=== PATIENT | male | born 1955 | race Caucasian/White ===

== ENCOUNTER 2018-12-10 21:26 | Emergency (ER) | payer MEDICARE, BC ==
[2018-12-10] MEDS ORDERED: Acetaminophen/HYDROcodone 325-5 MG Tab PO ONE (23:43)
--- NOTE | 2018-12-10 23:47 | EDM.PDOC ---
ED HPI GENERAL MEDICAL PROBLEM - General Chief Complaint: Lower Extremity Injury/Pain Stated Complaint: [facility] Time Seen by Provider: 12/10/18 23:17 Source of Information: Reports: Patient History Limitations: Reports: No Limitations - History of Present Illness INITIAL COMMENTS - FREE TEXT/NARRATIVE: Mr. Vega is a very pleasant 62-year-old man with a past medical history significant for type 1 diabetes and bilateral [id number] amputations, who states that he developed pain to his distal right femur, that radiated into his right BKA stump yesterday, 12/09/2018, but became worse today. He has an ulcer to the anterior aspect of his distal stump that has been there for the past 3 weeks that is being treated with dressing changes, but no antibiotics. No recent injury to his right lower extremity. No recent fever. The patient states that he had similar symptoms this past July. He states that a workup included a bone scan, x-rays, and an ultrasound, all which were negative. He states that he was prescribed oral antibiotics and pain medications , and that the pain resolved. The patient states that he checks his blood glucose at least 4 times a day, with his usual blood glucose around 200. It was 113 this morning, but was 345 by EMS. The patient has an insulin pump. The patient reports that he developed end-stage renal disease in 2000, and was on hemodialysis for a year before receiving a kidney transplant in 2001. He is on CellCept and cyclosporine (Gengraf). The patient is visiting this area from [place]. He intends to head back home this morning, 12/13/2018. Right Leg Pain Score (Numeric/FACES): 10 - Related Data Allergies Allergy/AdvReac Type Severity Reaction Status Date / Time Penicillins Allergy Cannot Verified 12/10/18 21:34 Remember Home Meds: Home Meds Cephalexin [Keflex] 1 cap PO Q6H #20 capsule 12/11/18 [Rx] Sulfamethoxazole/Trimethoprim [Bactrim Ds Tablet] 1 tab PO Q12H #10 tablet 12/11 [Rx] Past Medical History Cardiovascular History: Reports: Hypertension Genitourinary History: Reports: Chronic Renal Insuffiency (s/p kidney transplant 2001. On HD 2000 -> 2001.) Endocrine/Metabolic History: Reports: Diabetes, Type I, Hypothyroidism Immunologic History: Reports: Immunosuppression, Solid Organ Transplant (kidney , 2001) - Past Surgical History Male Surgical History: Reports: Other (See Below) (Kidney transplant 2001) Musculoskeletal Surgical History: Reports: Amputation (Left BKA 2002. Right BKA 2014.) Social & Family History - Family History Family Medical History: Noncontributory - Tobacco Use Smoking Status *Q: Never Smoker - Caffeine Use Caffeine Use: Reports: Soda, Tea - Alcohol Use Alcohol Use History: Yes Alcohol Use Frequency: Rarely - Recreational Drug Use Recreational Drug Use: No - Living Situation & Occupation Living situation: Reports: , with Spouse Occupation: Disabled Review of Systems - Review of Systems Review Of Systems: ROS reveals no pertinent complaints other than HPI. ED EXAM, GENERAL - Physical Exam Exam: See Below Exam Limited By: No Limitations General Appearance: Alert, WD/WN, No Apparent Distress Eye Exam: Bilateral Eye: EOMI, Normal Inspection Ears: Normal External Exam, Hearing Grossly Normal Nose: Normal Inspection Throat/Mouth: Normal Inspection, Normal Lips, Normal Voice, No Airway Compromise Head: Atraumatic, Normocephalic Neck: Normal Inspection, Full Range of Motion Respiratory/Chest: No Respiratory Distress, Lungs Clear, Normal Breath Sounds, No Accessory Muscle Use Cardiovascular: Normal Peripheral Pulses, Regular Rate, Rhythm, No Gallop, No JVD, No Murmur, No Rub Peripheral Pulses: 4+: Radial (L), Radial (R) GI/Abdominal: Normal Bowel Sounds, Soft, Non-Tender, No Organomegaly, No Distention, No Abnormal Bruit, No Mass (Male) Exam: Deferred Rectal (Males) Exam: Deferred Back Exam: Normal Inspection, Full Range of Motion, NT Extremities: Normal Capillary Refill, Other (Bilateral BKA's. There is an approximately 2 cm diameter ulcer in the anterior distal right stump. No other visible abnormalities to the right stump, such as swelling, erythema, ecchymosis , or abrasion, however, the stump is very warm to palpation, much warmer than the right thigh, or the patient's left stump or left thigh. Mild tenderness to palpation of the right stump. Neurovascular status of both lower extremities appears to be intact.) Neurological: Alert, Oriented, Normal Cognition, No Motor/Sensory Deficits Psychiatric: Normal Affect Skin Exam: Warm, Dry, Intact, Normal Color, No Rash Course - Vital Signs Last Recorded V/S: Last Vital Signs Temp 38.1 C 12/10/18 21:30 Pulse 94 12/10/18 21:30 Resp 14 12/10/18 21:30 BP 172/79 H 12/10/18 21:30 Pulse Ox 95 12/10/18 21:30 - Orders/Labs/Meds Orders: Active Orders 24 hr Category Date Time Status CULTURE BLOOD [BC] Stat Lab 12/10/18 23:46 Received CULTURE BLOOD [BC] Stat Lab 12/10/18 23:55 Received Blood Culture x2 Reflex Set [OM.PC] Stat Oth 12/10/18 23:46 Ordered Labs: Laboratory Tests 12/11/18 12/11/18 12/11/18 Range/Units 00:08 00:08 01:17 WBC 20.19 H (4.23-9.07) K/mm3 RBC 4.08 L (4.63-6.08) M/mm3 Hgb 11.7 L (13.7-17.5) gm/L Hct 36.5 L (40.1-51.0) % MCV 89.5 (79.0-92.2) fl MCH 28.7 (25.7-32.2) pg MCHC 32.1 L (32.2-35.5) g/dl RDW Std Deviation 45.2 H (35.1-43.9) fL Plt Count 450 H (163-337) K/mm3 MPV 10.0 (9.4-12.3) fl Neutrophils % (Manual) 85 H (40-60) % Band Neutrophils % 4 (0-10) % Lymphocytes % (Manual) 8 L (20-40) % Atypical Lymphs % 0 % Monocytes % (Manual) 3 (2-10) % Eosinophils % (Manual) 0 L (0.8-7.0) % Basophils % (Manual) 0 L (0.2-1.2) Platelet Estimate Increased RBC Morph Comment Normal Sodium 135 L (136-145) mEq/L Potassium 4.9 (3.5-5.1) mEq/L Chloride 104 (98-107) mEq/L Carbon Dioxide 22 (21-32) mEq/L Anion Gap 13.9 (5-15) BUN 37 H (7-18) mg/dL Creatinine 1.6 H (0.7-1.3) mg/dL Est Cr Clr Drug Dosing 44.10 mL/min Estimated GFR (MDRD) 44 (>60) mL/min BUN/Creatinine Ratio 23.1 H (14-18) Glucose 370 H (74-106) mg/dL Calcium 9.0 (8.5-10.1) mg/dL Total Bilirubin 0.4 (0.2-1.0) mg/dL AST 10 L (15-37) U/L ALT 11 L (16-63) U/L Alkaline Phosphatase 129 H (46-116) U/L Total Protein 7.3 (6.4-8.2) g/dl Albumin 2.3 L (3.4-5.0) g/dl Globulin 5.0 gm/dL Albumin/Globulin Ratio 0.5 L (1-2) MRSA (PCR) Positive H Meds: Medications Discontinued Medications Generic Name Dose Route Start Last Admin Trade Name Freq PRN Reason Stop Dose Admin Hydrocodone Bitart/Acetaminophen 2 tab 12/10/18 23:43 12/10/18 23:54 Counce 325-5 Mg PO 12/10/18 23:44 2 tab ONETIME ONE Administration Vancomycin HCl 1 gm/ Sodium 250 mls @ 250 mls/hr 12/11/18 02:45 12/11/18 03: 28 Chloride IV 250 mls/hr Q12H BISHNU Administration Ceftriaxone Sodium 1 gm/ 100 mls @ 200 mls/hr 12/11/18 02:45 12/11/18 02:57 Sodium Chloride IV 12/11/18 03:14 200 mls/hr ONETIME STA Administration - Re-Assessments/Exams Free Text/Narrative Re-Assessment/Exam: 12/10/18 23:46 As per the physical exam, the patient's right stump is warm to palpation, although there is no associated erythema. I have ordered some blood work and a pair of blood cultures, while the patient is checking with his what antibiotic he was given back in July, that seemed to work. In the meantime, the patient will be given Counce for his discomfort. 12/11/18 01:11 The patient's CBC demonstrates a WBC count elevated at 20.19, with 4% bandemia. His H/H is 11.7/36.5, and his platelets are 450,000. His CMP is workable for a BUN/Cr elevated at 37/1.6, and a blood glucose elevated at 370. The remainder of his CMP is unremarkable. The patient thought that he was able to acquire the name of the antibiotic that he had been placed on in July, however, after speaking to his on the phone , it turns out that that antibiotic was for a different problem. The patient's had mentioned that he was on IV vancomycin at some point, although the patient does not recall being told that he has a history of MRSA. With the patient's elevated WBC count, hyperglycemia, and being on immunosuppressive medications secondary to a kidney transplant, I'm concerned that the patient may have osteomyelitis of his right leg stump via the ulcer to his anterior leg. I have ordered an MRSA screen by PCR, and based on those results, I will start the patient on empiric IV antibiotics. The patient will then be admitted, and undergo an MRI of his leg tomorrow to evaluate for osteomyelitis. X-rays tonight are of no real use, since they would not rule in or rule out osteomyelitis. Similarly, wound cultures are not recommended, as the culture will invariably grow out something, but a positive culture does not mean that the wound is infected, or that if it is infected, that it is infected with the organisms that grow from a topical wound swab. I informed the patient of his elevated blood glucose. He will give himself some extra insulin through his insulin pump. 12/11/18 02:38 The patient's MRSA screen by PCR has returned positive. I will start him on IV vancomycin and Rocephin. Because of his renal insufficiency, current guidelines recommend vancomycin dosing of 1 g IV every 12 hours. Rocephin does not need dosage adjustment. 12/11/18 02:[address] Goncalves at 02:47. He is not comfortable admitting the patient to this facility, since the patient is immunosuppressed following a kidney transplant. He recommended transfer to [place]. The above was discussed with the patient. The patient is willing to be admitted to this facility for IV antibiotics and an MRI, but he is not willing to be transferred to [place]. He prefers to go home, then return to [place] as soon as possible. I advised the patient that if in fact he does have a bone infection, that it could be very serious, and the patient stated that he knew that. The patient is willing to stay for a single dose of IV vancomycin and IV Rocephin, after which I will discharge him home with prescriptions for oral Keflex and Bactrim DS, however, I informed the patient that Keflex and Bactrim DS are not substitutes for Rocephin and vancomycin, but at least it's something. I informed the patient that he will need to get back home to [place] as fast as possible to have an MRI of his leg, and he stated that he would. Neither Keflex nor Bactrim DS require dosage adjustment for the patient's degree of renal insufficiency. 12/11/18 04:30 The patient's IV Rocephin and IV Vanco have finished infusing. I will discharge him home, as above. The patient expects that he and his brother will likely start driving for [place] this morning, hoping to get there in a little over 24 hours. 12/11/18 04:43 Departure - Departure Time of Disposition: 04:34 Disposition: Home, Self-Care 01 Condition: Good Clinical Impression: Infection of below knee amputation stump, MRSA (methicillin resistant Staphylococcus aureus) colonization, Hyperglycemia due to type 1 diabetes mellitus, Chronic renal insufficiency - Discharge Information *PRESCRIPTION DRUG MONITORING PROGRAM REVIEWED*: Not Applicable *COPY OF PRESCRIPTION DRUG MONITORING REPORT IN PATIENT [facility]UPINDER: Not Applicable Prescriptions: Cephalexin [Keflex] 1 cap PO Q6H #20 capsule Sulfamethoxazole/Trimethoprim [Bactrim Ds Tablet] 1 tab PO Q12H #10 tablet Instructions: MRSA Infection, Adult Referrals: PCP,Not In Area [Primary Care Provider] - Forms: ED Department Discharge Additional Instructions: You were seen in the emergency room for pain to your distal right thigh and right leg stump. Workup in the ER included blood work, 2 sets of blood cultures, and an MRSA screen. Your WBC count returned elevated at 20.19 with 4% bandemia, suggestive of an infection. Your BUN/Cr returned elevated at 37/1.6, and your blood glucose returned elevated at 370. Your MRSA screen returned positive. Based on your history, physical exam, and ER tests, we are concerned that you may have an infection of the bone of your right leg stump. An attempt was made to admit you to the hospital here for IV antibiotics and an MRI of your right leg, however, because you are on immunosuppressive medicines, transfer to [place] was recommended. You have declined transfer to [place]. You received a single dose of the IV antibiotics Rocephin and vancomycin in the ER, and prescriptions for the oral antibiotics Keflex and Bactrim have been provided to you. Take one tablet of Keflex every 6 hours, as prescribed. Take one tablet of Bactrim every 12 hours, as prescribed. You are to return home to [place] as fast as possible. Once there, we recommend that you get an MRI of your right leg stump as soon as possible, to evaluate for osteomyelitis (a bone infection). If you change your mind about transferring to [place], please do not hesitate to return to the ER. - My Orders Last 24 Hours: My Active Orders 12/10/18 23:46 CULTURE BLOOD [BC] Stat Blood Culture x2 Reflex Set [OM.PC] Stat 12/10/18 23:55 CULTURE BLOOD [BC] Stat - Assessment/Plan Last 24 Hours: My Active Orders 12/10/18 23:46 CULTURE BLOOD [BC] Stat Blood Culture x2 Reflex Set [OM.PC] Stat 12/10/18 23:55 CULTURE BLOOD [BC] Stat
[2018-12-11] MEDS ORDERED: Cephalexin 500 MG Cap PO STA (01:02)
[2018-12-11] MEDS ORDERED: cefTRIAXone 1 GM in Sodium Chloride 0.9% 100 ML IV STA (02:45)
== END 2018-12-11 04:37 | disposition home or self-care (01) ==
LOC: JD.ED 21:26
DX: T87.43 Infection of amputation stump, right lower extremity (principal); T87.44 Infection of amputation stump, left lower extremity; E10.65 Type 1 diabetes mellitus with hyperglycemia; I13.10 Hypertensive heart and chronic kidney disease without heart failure, with stage 1 through stage 4 chronic kidney disease, or unspecified chronic kidney disease; E10.22 Type 1 diabetes mellitus with diabetic chronic kidney disease; N18.9 Chronic kidney disease, unspecified; Z22.322 Carrier or suspected carrier of Methicillin resistant Staphylococcus aureus; Z88.0 Allergy status to penicillin; Z79.899 Other long term (current) drug therapy
CPT/HCPCS: 36415; 80053; 85007; 85027; 87040; 87641; 96365; 96367; 99283; A9270; J0696; J3370; J7030; J7050; 87077; 87186